=== PATIENT | male | born 1960 | race Caucasian/White ===

== ENCOUNTER → 2024-05-05 | Emergency (ER) | payer MEDICARE, BC ==
[~2024-05-05] VITALS: Ht 172.7 cm; Wt 83.9 kg
[2024-05-05 16:39] VITALS: BP 138/72; TEMP 98.1; O2SAT 100
== END | disposition home or self-care (01) ==
LOC: ER 15:13
DX: S86.812A Strain of other muscle(s) and tendon(s) at lower leg level, left leg, initial encounter (principal); Z60.2 Problems related to living alone; X58.XXXA Exposure to other specified factors, initial encounter; Y93.89 Activity, other specified; Y92.89 Other specified places as the place of occurrence of the external cause; Y99.8 Other external cause status
CPT/HCPCS: 93971-TC